=== PATIENT | male | born 1950 | race Caucasian/White ===

== ENCOUNTER 2016-09-10 21:01 | Emergency (ER) | payer MEDICARE ==
[~2016-09-10] VITALS: Ht 162.6 cm; Wt 64.0 kg
[~2016-09-10 21:01] MED LIST: AMOX1TAB64 PO; LEVO500T33 PO; SULF1TAB24 PO
[2016-09-10 21:16] VITALS: BP 126/75
== END 2016-09-10 22:23 | disposition home or self-care (01) ==
LOC: ED 21:40
DX: M79.89 Other specified soft tissue disorders (principal); L25.9 Unspecified contact dermatitis, unspecified cause; Z89.512 Acquired absence of left leg below knee
CPT/HCPCS: 99283

== ENCOUNTER 2016-09-20 11:54 | Emergency (ER) | payer MEDICARE ==
[~2016-09-20] VITALS: Ht 162.6 cm; Wt 63.6 kg
[2016-09-20 13:44] VITALS: BP 117/67
[2016-09-20 13:49] LABS: BLOOD UREA NITROGEN 12 mg/dL (7-18)
[2016-09-20] MEDS ORDERED: FUROSEMIDE 20 MG TABLET PO ONE (14:30)
== END 2016-09-20 15:38 | disposition home or self-care (01) ==
LOC: ED 15:10
DX: R60.0 Localized edema (principal); G89.29 Other chronic pain; Z89.512 Acquired absence of left leg below knee
CPT/HCPCS: 36415; 72190; 80048; 82040

== ENCOUNTER 2017-08-30 18:03 | Emergency (ER) | payer MEDICARE ==
[~2017-08-30] VITALS: Ht 162.6 cm; Wt 75.0 kg
[~2017-08-30 18:03] MED LIST changes: -LEVO500T33 PO; +LEVO500T47 PO
[2017-08-30 18:05] VITALS: BP 157/83
== END 2017-08-30 18:56 | disposition home or self-care (01) ==
LOC: ED 18:50
DX: L20.84 Intrinsic (allergic) eczema (principal); L20.9 Atopic dermatitis, unspecified
CPT/HCPCS: 99283

== ENCOUNTER 2017-10-30 22:40 | Emergency (ER) | payer MEDICARE ==
[~2017-10-30] VITALS: Ht 162.6 cm; Wt 75.5 kg
[2017-10-30] MEDS ORDERED: PERMETHRIN CRM 5%, 60GM TP SCH (23:30)
[2017-10-30] MEDS ORDERED: PERMETHRIN CRM 5%, 60GM ONE (23:42)
[2017-10-31 00:35] VITALS: BP 141/84
== END 2017-10-31 00:52 | disposition home or self-care (01) ==
LOC: ED 23:59
DX: B86 Scabies (principal)
CPT/HCPCS: 99283

== ENCOUNTER 2018-04-09 00:39 | Emergency (ER) | payer MEDICARE ==
[~2018-04-09] VITALS: Ht 162.6 cm; Wt 77.2 kg
[2018-04-09 02:01] VITALS: BP 115/59
== END 2018-04-09 02:14 ==
LOC: ED 02:00
DX: S06.0X0A Concussion without loss of consciousness, initial encounter (principal); S09.8XXA Other specified injuries of head, initial encounter; Z86.14 Personal history of Methicillin resistant Staphylococcus aureus infection; Y08.89XA Assault by other specified means, initial encounter; Y93.89 Activity, other specified; Y92.89 Other specified places as the place of occurrence of the external cause; Y99.8 Other external cause status
CPT/HCPCS: 70450; 99284

== ENCOUNTER 2018-04-12 17:33 | Emergency (ER) | payer MEDICARE ==
[~2018-04-12] VITALS: Ht 162.6 cm; Wt 73.0 kg
[2018-04-12] MEDS ORDERED: ONDANSETRON ODT 4 MG ONE (20:43)
[2018-04-12] MEDS ORDERED: ONDANSETRON ODT 4 MG PO ONE (21:00)
[2018-04-12 21:15] LABS: BASOPHILS # (AUTO) 0.04 x10^3/uL (0-0.1); BASOPHILS % (AUTO) 1 % (0-1); EOSINOPHILS # (AUTO) 0.21 x10^3/uL (0-0.4); EOSINOPHILS % (AUTO) 3 % (1-7); LYMPHOCYTES # (AUTO) 1.84 x10^3/uL (1-3.4); LYMPHOCYTES % (AUTO) 31 % (22-44); MD NO; MEAN CORPUSCULAR HEMOGLOBIN 29.2 pg (27.5-34.5); MEAN CORPUSCULAR HGB CONC 33.5 g/dL (33.2-36.2); MEAN CORPUSCULAR VOLUME 87.2 fL (81-97); MEAN PLATELET VOLUME 7.4 fL (7.4-10.4); MONOCYTES # (AUTO) 0.59 x10^3/uL (0.2-0.8); MONOCYTES % (AUTO) 10 % (2-9); NEUTROPHILS # (AUTO) 3.33 x10^3/uL (1.8-6.8); NEUTROPHILS % (AUTO) 55 % (42-75); PLATELET COUNT 319 x10^3/uL (130-400)
[2018-04-12 21:23] LABS: ALANINE AMINOTRANSFERASE 22 U/L (12-78); ALBUMIN 3.2 g/dL (3.4-5.0); ANION GAP 6 mmol/L (5-15); CALCIUM 8.4 mg/dL (8.5-10.1); CHLORIDE 110 mmol/L (98-107); CREATININE 0.96 mg/dL (0.7-1.3)
[2018-04-12 21:26] LABS: ALKALINE PHOSPHATASE 81 U/L (45-117); BILIRUBIN,TOTAL 0.4 mg/dL (0.2-1.0)
[2018-04-12 22:14] VITALS: BP 119/81
== END 2018-04-12 22:49 | disposition home or self-care (01) ==
LOC: ED 19:48
DX: G89.11 Acute pain due to trauma (principal); R51 Headache; M54.2 Cervicalgia; Z59.0 Homelessness; F17.200 Nicotine dependence, unspecified, uncomplicated
CPT/HCPCS: 36415; 70450; 71046; 80053; 80307; 85025; 93005; 99285; Q0162

== ENCOUNTER 2018-06-01 12:25 | Inpatient (IN) | payer MEDICARE ==
[~2018-06-01] VITALS: Ht 162.6 cm; Wt 80.7 kg
[2018-06-01] MEDS ORDERED: ACETAMINOPHEN 500 MG TABLET ONE (13:03)
[2018-06-01] MEDS ORDERED: PIPERACILLIN/TAZO/PMX 3.375GM 50 ML IVPB ONE (13:30)
[2018-06-01] MEDS ORDERED: ACETAMINOPHEN 500 MG TABLET PO ONE (13:30)
[2018-06-01] MEDS ORDERED: SODIUM CHLORIDE 0.9%, 500ML IVBOLUS ONE (13:30)
[2018-06-01] MEDS ORDERED: SODIUM CHLORIDE 0.9% 1,000ML IVBOLUS ONE (13:30)
[2018-06-01] MEDS ORDERED: VANCOMYCIN PER PHARMACY IV ONE (13:30)
[2018-06-01] MEDS ORDERED: MORPHINE SULFATE 4 MG/ML, 1ML IVPush ONE (13:30)
[2018-06-01 13:35] LABS: BASOPHILS # (AUTO) 0.02 x10^3/uL (0-0.1); BASOPHILS % (AUTO) 0 % (0-1); EOSINOPHILS # (AUTO) 0.02 x10^3/uL (0-0.4); EOSINOPHILS % (AUTO) 0 % (1-7); LYMPHOCYTES # (AUTO) 0.98 x10^3/uL (1-3.4); LYMPHOCYTES % (AUTO) 6 % (22-44); MD NO; MEAN CORPUSCULAR HEMOGLOBIN 29.2 pg (27.5-34.5); MEAN CORPUSCULAR HGB CONC 33.4 g/dL (33.2-36.2); MEAN CORPUSCULAR VOLUME 87.6 fL (81-97); MEAN PLATELET VOLUME 8.2 fL (7.4-10.4); MONOCYTES # (AUTO) 1.21 x10^3/uL (0.2-0.8); MONOCYTES % (AUTO) 7 % (2-9); NEUTROPHILS # (AUTO) 14.58 x10^3/uL (1.8-6.8); NEUTROPHILS % (AUTO) 87 % (42-75); PLATELET COUNT 313 x10^3/uL (130-400); RED CELL DISTRIBUTION WIDTH 14.1 % (9.4-14.8)
[2018-06-01 13:44] LABS: ALANINE AMINOTRANSFERASE 21 U/L (12-78); ALBUMIN 2.7 g/dL (3.4-5.0); ANION GAP 8 mmol/L (5-15); CALCIUM 8.1 mg/dL (8.5-10.1); CHLORIDE 102 mmol/L (98-107); CREATININE 0.97 mg/dL (0.7-1.3)
[2018-06-01 13:46] LABS: ALKALINE PHOSPHATASE 86 U/L (45-117); BILIRUBIN,TOTAL 0.6 mg/dL (0.2-1.0); TOTAL PROTEIN 7.4 g/dL (6.4-8.2)
[2018-06-01] MEDS ORDERED: PIPERACILLIN/TAZO/PMX 3.375GM 50 ML ONE (13:49)
[2018-06-01] MEDS ORDERED: MORPHINE SULFATE 4 MG/ML, 1ML ONE (13:50)
[2018-06-01] MEDS ORDERED: VANCOMYCIN 1,600 MG in SODIUM CHLORIDE 0.9% 250 ML IV ONE (14:00)
[2018-06-01] MEDS ORDERED: OMNIPAQUE 350 MG/ML, 100ML BOTTLE ONE (14:12)
[2018-06-01] MEDS ORDERED: DOCUSATE 100 MG CAPSULE PO PRN (14:30)
[2018-06-01] MEDS ORDERED: BISACODYL 10 MG SUPP PR PRN (14:30)
[2018-06-01] MEDS ORDERED: ONDANSETRON 2MG/ML, 2ML IVPush PRN (14:30)
[2018-06-01] MEDS ORDERED: POLYETHYLENE GLYCOL 17 GM PACKET PO PRN (14:30)
[2018-06-01] MEDS ORDERED: VANCOMYCIN PER PHARMACY MC PRN (14:30)
[2018-06-01] MEDS ORDERED: ENALAPRILAT 1.25 MG/ML, 2ML IVPush PRN (14:30)
[2018-06-01] MEDS ORDERED: PHARMACOKINETIC MONITORING MC PRN (15:30)
[2018-06-01] MEDS: ENOXAPARIN 40 MG/0.4 ML SQ SCH (16:51)
[2018-06-01 19:15] VITALS: BP 102/54
[2018-06-01] MEDS: NS + 20MEQ KCL 1,000 ML IV SCH (20:01)
[2018-06-01] MEDS: AMPICILLIN/SULBACTAM 3 GM in SODIUM CHLORIDE 0.9% 100 ML IV SCH (20:35)
[2018-06-02] MEDS: ACETAMINOPHEN 325 MG TABLET PO PRN ×3 (00:47→20:32)
[2018-06-02 01:15] VITALS: BP 97/56
[2018-06-02] MEDS: AMPICILLIN/SULBACTAM 3 GM in SODIUM CHLORIDE 0.9% 100 ML IV SCH ×4 (02:52→20:32)
[2018-06-02 04:42] LABS: BASOPHILS # (AUTO) 0.01 x10^3/uL (0-0.1); BASOPHILS % (AUTO) 0 % (0-1); EOSINOPHILS # (AUTO) 0.03 x10^3/uL (0-0.4); EOSINOPHILS % (AUTO) 0 % (1-7); LYMPHOCYTES # (AUTO) 1.23 x10^3/uL (1-3.4); LYMPHOCYTES % (AUTO) 10 % (22-44); MD NO; MEAN CORPUSCULAR VOLUME 87.8 fL (81-97); MEAN PLATELET VOLUME 7.7 fL (7.4-10.4); MONOCYTES # (AUTO) 1.06 x10^3/uL (0.2-0.8); MONOCYTES % (AUTO) 9 % (2-9); NEUTROPHILS # (AUTO) 9.64 x10^3/uL (1.8-6.8); NEUTROPHILS % (AUTO) 81 % (42-75); PLATELET COUNT 269 x10^3/uL (130-400); RED BLOOD COUNT 4.03 x10^6/uL (4.38-5.82)
[2018-06-02 04:51] LABS: ANION GAP 7 mmol/L (5-15); CALCIUM 7.2 mg/dL (8.5-10.1); CHLORIDE 109 mmol/L (98-107); CREATININE 1.02 mg/dL (0.7-1.3)
[2018-06-02] MEDS: NS + 20MEQ KCL 1,000 ML IV SCH (05:02)
[2018-06-02 06:52] VITALS: BP 98/61
[2018-06-02] MEDS ORDERED: POTASSIUM CHLORIDE 20 MEQ TAB.ER.PRT PO ONE (08:00)
[2018-06-02 13:22] VITALS: BP 101/56
[2018-06-02] MEDS: ENOXAPARIN 40 MG/0.4 ML SQ SCH (14:22)
[2018-06-02] MEDS: VANCOMYCIN 1,600 MG in SODIUM CHLORIDE 0.9% 250 ML IV SCH (15:14)
[2018-06-02 16:06] LABS: CLOSTRIDIUM DIFFICILE ANTIGEN NEGATIVE; CLOSTRIDIUM DIFFICILE TOXIN NEGATIVE (Negative)
[2018-06-02 19:04] VITALS: BP 100/65
[2018-06-02] MEDS: KETOROLAC 30 MG/1 ML IV PRN (20:32)
[2018-06-03 01:59] VITALS: BP 93/63
[2018-06-03] MEDS: AMPICILLIN/SULBACTAM 3 GM in SODIUM CHLORIDE 0.9% 100 ML IV SCH ×4 (02:35→20:01)
[2018-06-03 05:39] LABS: BASOPHILS # (AUTO) 0.04 x10^3/uL (0-0.1); BASOPHILS % (AUTO) 0 % (0-1); EOSINOPHILS # (AUTO) 0.16 x10^3/uL (0-0.4); EOSINOPHILS % (AUTO) 1 % (1-7); LYMPHOCYTES # (AUTO) 0.92 x10^3/uL (1-3.4); LYMPHOCYTES % (AUTO) 8 % (22-44); MD NO; MEAN CORPUSCULAR HEMOGLOBIN 28.9 pg (27.5-34.5); MEAN CORPUSCULAR HGB CONC 33.1 g/dL (33.2-36.2); MEAN CORPUSCULAR VOLUME 87.3 fL (81-97); MEAN PLATELET VOLUME 8.5 fL (7.4-10.4); MONOCYTES # (AUTO) 0.76 x10^3/uL (0.2-0.8); MONOCYTES % (AUTO) 7 % (2-9); NEUTROPHILS # (AUTO) 9.49 x10^3/uL (1.8-6.8); NEUTROPHILS % (AUTO) 83 % (42-75); PLATELET COUNT 277 x10^3/uL (130-400); RED BLOOD COUNT 4.19 x10^6/uL (4.38-5.82); RED CELL DISTRIBUTION WIDTH 14.3 % (9.4-14.8)
[2018-06-03 05:57] LABS: ANION GAP 9 mmol/L (5-15); CALCIUM 7.9 mg/dL (8.5-10.1); CHLORIDE 111 mmol/L (98-107)
[2018-06-03 05:59] LABS: CREATININE 0.98 mg/dL (0.7-1.3)
[2018-06-03 06:17] LABS: HEMOGLOBIN A1C 6.3 % (4.2-6.3)
[2018-06-03 07:45] VITALS: BP 102/68
[2018-06-03] MEDS ORDERED: POTASSIUM CHLORIDE 20 MEQ TAB.ER.PRT PO ONE (11:00)
[2018-06-03 13:52] VITALS: BP 118/67
[2018-06-03] MEDS: ACETAMINOPHEN 325 MG TABLET PO PRN ×2 (14:09→19:53)
[2018-06-03] MEDS: ENOXAPARIN 40 MG/0.4 ML SQ SCH (14:09)
[2018-06-03] MEDS: VANCOMYCIN 1,600 MG in SODIUM CHLORIDE 0.9% 250 ML IV SCH (14:43)
[2018-06-03 19:43] VITALS: BP 128/71
[2018-06-03] MEDS: GABAPENTIN 300 MG CAPSULE PO PRN (19:53)
[2018-06-03] MEDS: KETOROLAC 30 MG/1 ML IV PRN (19:53)
[2018-06-04] MEDS: AMPICILLIN/SULBACTAM 3 GM in SODIUM CHLORIDE 0.9% 100 ML IV SCH ×5 (02:03→23:45)
[2018-06-04 02:17] VITALS: BP 121/72
[2018-06-04 04:49] VITALS: BP 159/75
[2018-06-04 07:01] VITALS: BP 117/65
[2018-06-04 13:06] VITALS: BP 159/72
[2018-06-04] MEDS: ENOXAPARIN 40 MG/0.4 ML SQ SCH (14:32)
[2018-06-04] MEDS: VANCOMYCIN 1,600 MG in SODIUM CHLORIDE 0.9% 250 ML IV SCH (15:54)
[2018-06-04] MEDS: GABAPENTIN 300 MG CAPSULE PO PRN (16:52)
[2018-06-04] MEDS: KETOROLAC 30 MG/1 ML IV PRN (16:52)
[2018-06-04 20:22] VITALS: BP 117/73
[2018-06-04] MEDS ORDERED: OMNIPAQUE 350 MG/ML, 100ML BOTTLE ONE (22:48)
[2018-06-05 02:07] VITALS: BP 108/67
[2018-06-05] MEDS: KETOROLAC 30 MG/1 ML IV PRN ×3 (04:28→19:06)
[2018-06-05] MEDS: AMPICILLIN/SULBACTAM 3 GM in SODIUM CHLORIDE 0.9% 100 ML IV SCH ×3 (05:36→18:00)
[2018-06-05 06:24] LABS: BASOPHILS # (AUTO) 0.02 x10^3/uL (0-0.1); BASOPHILS % (AUTO) 0 % (0-1); EOSINOPHILS # (AUTO) 0.19 x10^3/uL (0-0.4); EOSINOPHILS % (AUTO) 3 % (1-7); LYMPHOCYTES % (AUTO) 11 % (22-44); MD NO; MEAN CORPUSCULAR HGB CONC 33.4 g/dL (33.2-36.2); MEAN CORPUSCULAR VOLUME 86.9 fL (81-97); MEAN PLATELET VOLUME 7.7 fL (7.4-10.4); MONOCYTES # (AUTO) 0.61 x10^3/uL (0.2-0.8); MONOCYTES % (AUTO) 9 % (2-9); NEUTROPHILS # (AUTO) 5.37 x10^3/uL (1.8-6.8); NEUTROPHILS % (AUTO) 77 % (42-75); PLATELET COUNT 382 x10^3/uL (130-400); RED BLOOD COUNT 4.05 x10^6/uL (4.38-5.82); RED CELL DISTRIBUTION WIDTH 14.6 % (9.4-14.8)
[2018-06-05 06:27] LABS: CHLORIDE 111 mmol/L (98-107)
[2018-06-05 06:28] VITALS: BP 118/70
[2018-06-05 06:33] LABS: ANION GAP 9 mmol/L (5-15); CALCIUM 7.8 mg/dL (8.5-10.1); CREATININE 0.88 mg/dL (0.7-1.3)
[2018-06-05] MEDS: VANCOMYCIN 1,600 MG in SODIUM CHLORIDE 0.9% 250 ML IV SCH (09:45)
[2018-06-05] MEDS: GABAPENTIN 300 MG CAPSULE PO PRN (09:53)
[2018-06-05 13:07] VITALS: BP 109/70
[2018-06-05] MEDS: ENOXAPARIN 40 MG/0.4 ML SQ SCH (14:49)
[2018-06-05 18:34] VITALS: BP 125/72
[2018-06-06] MEDS: AMPICILLIN/SULBACTAM 3 GM in SODIUM CHLORIDE 0.9% 100 ML IV SCH ×4 (00:01→17:22)
[2018-06-06 01:58] VITALS: BP 131/60
[2018-06-06 06:49] VITALS: BP 125/76
[2018-06-06] MEDS: KETOROLAC 30 MG/1 ML IV PRN (09:07)
[2018-06-06] MEDS: GABAPENTIN 300 MG CAPSULE PO PRN (09:07)
[2018-06-06] MEDS: VANCOMYCIN 1,600 MG in SODIUM CHLORIDE 0.9% 250 ML IV SCH (10:14)
[2018-06-06 12:09] VITALS: BP 120/70
[2018-06-06] MEDS: ENOXAPARIN 40 MG/0.4 ML SQ SCH (15:12)
[2018-06-06 18:53] VITALS: BP 128/54
[2018-06-07] MEDS: AMPICILLIN/SULBACTAM 3 GM in SODIUM CHLORIDE 0.9% 100 ML IV SCH
[2018-06-07 00:05] VITALS: BP 132/78
== END 2018-06-07 05:50 | disposition left against medical advice (07) | DRG 872 ==
LOC: ED 13:01 → 3NW 14:29 → ED 16:07
PROVIDERS: ADMIT Family Medicine; ATTEND Family Medicine
DX: A41.9 Sepsis, unspecified organism (principal); L03.116 Cellulitis of left lower limb; J98.11 Atelectasis; E44.0 Moderate protein-calorie malnutrition; L02.416 Cutaneous abscess of left lower limb; E87.6 Hypokalemia; R73.9 Hyperglycemia, unspecified; F17.200 Nicotine dependence, unspecified, uncomplicated; Z86.14 Personal history of Methicillin resistant Staphylococcus aureus infection; Z89.512 Acquired absence of left leg below knee; Z68.30 Body mass index [BMI] 30.0-30.9, adult
CPT/HCPCS: 36415; 71045; 80048; 80053; 80202; 83036; 83605; 83735; 85025; 85651; 86140; 87040; 87070; 87077; 87147; 87186; 87205; 87324; 99291; G0378; J0295; J1650; J1885; J2405; J2543; J3370; J3480; Q9967; J7030; J7040; J7050

== ENCOUNTER 2018-07-22 19:12 | Emergency (ER) | payer MEDICARE ==
[~2018-07-22] VITALS: Ht 162.6 cm; Wt 74.0 kg
--- NOTE | 2018-07-22 20:30 | NUR ---
PT TO ROOM FROM LOBBY AT THIS TIME.
--- NOTE | 2018-07-22 21:05 | NUR ---
BIB EMS FROM [facility]. PT STATES HE IS UNABLE TO REMOVE HIS LEFT LEG PROSTHESIS. HE ALSO HAS COMPLAINT OF "BUG BITES ALL OVER MY BACK" CALL LIGHT W/I REACH. ER MD TO SEE.
--- NOTE | 2018-07-22 21:07 | NUR ---
ISSOLATION CART PLACED AT DOORWAY
--- NOTE | 2018-07-22 22:24 | NUR ---
prosthesis was out by mann Egalet guillermo and estrada ruvalcaba . assessed skin redness no skin break down but very odorous from the stump site. cleaned up by mann li at bed side by strile saline applied lotion by mann Egalet guillermo mccurdy was notified at this time
[2018-07-22] MEDS ORDERED: PROMETHAZINE 25 MG/ML, 1ML ONE (22:29)
[2018-07-22] MEDS ORDERED: SODIUM CHLORIDE FLUSH 10ML SYR IVF ONE (22:30)
--- NOTE | 2018-07-22 22:30 | NUR ---
GAEL GRULLON AND I REMOVED PROSTHETIC LEG. JUNG GRULLON AT BEDSIDE. PT'S SKIN ON STUMP RED, ITCHY, AND MALODOROUS BUT INTACT. PT HAD MULTIPLE EPISODES OF EMESIS SHORTLY AFTER. JUNG GRULLON MEDICATED PT FOR NAUSEA AND VOMITING.
[2018-07-22] MEDS ORDERED: PROMETHAZINE 25 MG/ML, 1ML IM ONE (23:00)
[2018-07-22 23:01] LABS: BASOPHILS # (AUTO) 0.02 x10^3/uL (0-0.1); BASOPHILS % (AUTO) 0 % (0-1); EOSINOPHILS # (AUTO) 0.27 x10^3/uL (0-0.4); EOSINOPHILS % (AUTO) 5 % (1-7); LYMPHOCYTES # (AUTO) 1.89 x10^3/uL (1-3.4); LYMPHOCYTES % (AUTO) 32 % (22-44); MD NO; MEAN CORPUSCULAR HEMOGLOBIN 28.8 pg (27.5-34.5); MEAN CORPUSCULAR HGB CONC 33.6 g/dL (33.2-36.2); MEAN CORPUSCULAR VOLUME 85.7 fL (81-97); MEAN PLATELET VOLUME 7.3 fL (7.4-10.4); MONOCYTES # (AUTO) 0.69 x10^3/uL (0.2-0.8); MONOCYTES % (AUTO) 12 % (2-9); NEUTROPHILS # (AUTO) 2.97 x10^3/uL (1.8-6.8); NEUTROPHILS % (AUTO) 51 % (42-75); PLATELET COUNT 305 x10^3/uL (130-400); RED BLOOD COUNT 5.01 x10^6/uL (4.38-5.82); RED CELL DISTRIBUTION WIDTH 15.6 % (9.4-14.8)
[2018-07-22 23:11] LABS: MICROSCOPIC NOT IND
[2018-07-22 23:15] LABS: ALANINE AMINOTRANSFERASE 22 U/L (12-78); ALBUMIN 3.2 g/dL (3.4-5.0); ANION GAP 7 mmol/L (5-15); CALCIUM 8.7 mg/dL (8.5-10.1); CHLORIDE 107 mmol/L (98-107); CREATININE 0.81 mg/dL (0.7-1.3)
[2018-07-22 23:17] LABS: ALKALINE PHOSPHATASE 78 U/L (45-117); BILIRUBIN,TOTAL 0.3 mg/dL (0.2-1.0)
[2018-07-22 23:23] LABS: CULTURE INDICATED? NO
--- NOTE | 2018-07-22 23:55 | NUR ---
given report to jorge ruvalcaba
[2018-07-23 00:07] VITALS: BP 110/62
--- NOTE | 2018-07-23 00:08 | NUR ---
pt sleeping in bed, no complaints at this time, awaiting dispo
== END 2018-07-23 01:41 | disposition home or self-care (01) ==
LOC: ED 22:39
DX: L03.116 Cellulitis of left lower limb (principal); F17.200 Nicotine dependence, unspecified, uncomplicated
CPT/HCPCS: 36415; 80053; 81003; 83605; 85025; 87040; 96372; 99283; J2550

== ENCOUNTER 2019-06-12 13:08 | Emergency (ER) | payer MEDICARE ==
[~2019-06-12] VITALS: Ht 162.6 cm; Wt 70.0 kg
[2019-06-12 13:45] VITALS: BP 127/80
== END 2019-06-12 14:39 ==
LOC: ED 14:30
DX: S40.862A Insect bite (nonvenomous) of left upper arm, initial encounter (principal); S40.861A Insect bite (nonvenomous) of right upper arm, initial encounter; S80.861A Insect bite (nonvenomous), right lower leg, initial encounter; R21 Rash and other nonspecific skin eruption; W57.XXXA Bitten or stung by nonvenomous insect and other nonvenomous arthropods, initial encounter; Y93.89 Activity, other specified; Y92.89 Other specified places as the place of occurrence of the external cause; Y99.8 Other external cause status
CPT/HCPCS: 99283